=== PATIENT | female | born 1940 | race Caucasian/White ===

== ENCOUNTER → 2016-06-15 | Outpatient (CLI) | payer MEDICARE, OTHER | END | disposition home or self-care (01) | LOC: GMAJ 10:37 | PROVIDERS: ATTEND Family Medicine | DX: I10 Essential (primary) hypertension (principal) ==

== ENCOUNTER → 2016-06-18 | Outpatient (CLI) | payer MEDICARE, OTHER ==
--- NOTE | 2016-06-18 10:37 | MAM ---
History: Well woman exam. Date of exam: 06/18/2016 Services provided: Bilateral full field digital screening mammography. CAD, the images were reviewed with R2 computer aided detection. FINDINGS: Glandular tissue is scattered glandular contour with increased mammographic density. Comparison with 2014 exam. Distribution of the glandular tissue is stable. No dominant mass, architectural distortion or clustered microcalcification. IMPRESSION: Benign exam Recommendation: Routine annual mammography BIRAD CATEGORY: 2 BENIGN Electronically signed by: Daphnie Jaime MD 06/18/2016 10:36 AM CDT
== END ==
LOC: MAMMO 08:55
PROVIDERS: ATTEND Family Medicine
DX: Z12.31 Encounter for screening mammogram for malignant neoplasm of breast (principal)

== ENCOUNTER → 2016-07-23 | Outpatient (CLI) | payer MEDICARE, OTHER ==
--- NOTE | 2016-07-23 09:48 | MRI ---
Procedure: MR KNEE WITHOUT IV CONTRAST Exam Date: 07/23/2016 12:00 AM CDT Ordering Provider: KAYKAY QUINTANA Clinical Indication: KNEE MASS Comparison: None Technique: Multisequence, multiplanar images of the right knee were acquired without intravenous contrast. Findings: Menisci: Medial Meniscus: Unremarkable. No tears demonstrated. Lateral Meniscus: Subtle horizontal oblique tear involves the in a one thirds of the free margin of the body of the meniscus. There is no meniscal extrusion. Ligaments and Intercondylar Notch: The collateral and cruciate ligaments are intact. Articular Cartilage: Medial Compartment: Intact. Lateral Compartment: 0.4 x 0.4 cm focus of the partial-thickness cartilage loss is seen about the posterior weightbearing surface of the lateral femoral condyle. No adjacent subchondral marrow edema. Patellofemoral Joint: Unremarkable. Articular Cartilage and retinacula are intact. Extensor Mechanism: The quadriceps and patellar tendon are intact. Bones: Unremarkable. Soft Tissues/Miscellaneous: Unremarkable. No pathologic effusion or popliteal cyst. No evidence for a muscle tear. IMPRESSION: 1. No discrete mass in the knee. 2. Subtle mucoid degeneration and probable superimposed horizontal oblique tear of the inner one third's of the lateral meniscus. No meniscal extrusion. 3. Intact medial meniscus and cruciate ligaments. 4. 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 No full-thickness cartilage loss. Electronically signed by: Montana Patel MD 07/23/2016 9:48 AM CDT
== END | disposition home or self-care (01) ==
LOC: MRI 08:42
PROVIDERS: ATTEND Family Medicine
DX: R29.898 Other symptoms and signs involving the musculoskeletal system (principal)

== ENCOUNTER → 2017-08-17 | Outpatient (CLI) | payer OTHER | LOC: GMAJ 10:40 | PROVIDERS: ATTEND Family Medicine | DX: I10 Essential (primary) hypertension (principal) ==

== ENCOUNTER → 2017-10-29 | Outpatient (CLI) | payer OTHER | LOC: GMAJ 10:51 | PROVIDERS: ATTEND Family Medicine | DX: M15.0 Primary generalized (osteo)arthritis (principal) ==

== ENCOUNTER → 2017-12-27 | Outpatient (CLI) | payer OTHER, MEDICARE ==
--- NOTE | 2017-12-27 15:31 | US ---
EXAM DESCRIPTION: Carotid Duplex: ULTRASOUND. CLINICAL HISTORY: DIZZINESS COMPARISON: Carotid duplex 11/30/2012. CT scan of the head on the same visit. TECHNIQUE: Transcutaneous scanning utilizing coles-scale and Doppler modes to evaluate the bilateral carotid systems and vertebral arteries. Percentage of diameter of stenosis or no stenosis recorded will be based upon NASCET criteria. FINDINGS: Peak systolic/end diastolic (CM-Sec) CCA Right proximal 63/8 Left proximal 67/10. ICA Right proximal 38/9, distal 57/16. Left proximal 40/7, Distal 76/19. Vertebral Right 44/8 Left 33/9. ECA (PS Only) Right 57 left 59. ICA/CCA peak systolic ratio: Right 0.9 Left 1.1 ICA/CCA end diastolic ratio: Right 2.1 Left 1.8 Vertebral arteries: antegrade flow. Comments: Spectral broadening bilateral proximal ICAs. Minimal atherosclerotic irregularities. IMPRESSION: 1. Doppler evaluation of the bilateral carotid systems and vertebral arteries shows no hemodynamically significant stenoses. 2. No significant amount of plaque seen in the carotid arteries bilaterally. Bilateral vertebral arteries showed antegrade-cephalad flow. Essentially stable findings compared to the prior study in 2012. Vertebral artery was not visualized on that study. Electronically signed by: Patrice Hillman MD 12/27/2017 3:29 PM SUPERINTENDENT NONSELLING
--- NOTE | 2017-12-27 15:40 | CT ---
EXAM DESCRIPTION: Head: Computed Tomography. CLINICAL HISTORY: DIZZINESS COMPARISON: MRI brain without contrast 11/30/2012. TECHNIQUE: Non-helical axial scans through the skull and brain, at 2.5 x 20 mm intervals, non-contrast. Coronal and sagittal 2.0 mm reconstructions. Total Exam DLP: 752.48 mGy-cm. This exam was performed according to our departmental dose-optimization program which includes automated exposure control, adjustment of the mA and/or kV according to patient size and/or use of iterative reconstruction technique; to reduce radiation dose to as low as reasonably achievable (ALARA). FINDINGS: No hemorrhage, no mass-effect, and no midline shift. Minimal low-density in the bilateral periventricular white matter is relatively symmetric and also seen in the bilateral basal ganglia. Focal low-density in the outer inferior left basal ganglia also the subcortical white matter of the right frontal lobe no abnormal radiodense material in the brain parenchyma. Vascular calcifications anterior circulation; physiologic calcifications in the pineal gland and choroid plexus. No effacement or displacement of the ventricles, CSF spaces, or subdural spaces. No extra axial fluid collection or hemorrhage. No gross abnormalities of the bony calvarium. No significant inflammatory changes in the paranasal sinuses. Minimal soft tissue density in the gravity dependent air cells of the mastoid groups bilaterally. Bilateral phani bullosa in the middle turbinates abutting the nasal septum. IMPRESSION: 1. No hemorrhage, no mass effect, no midline shift. Minimal symmetric findings in the periventricular white matter and bilateral basal ganglia most likely related to cerebral microvascular disease and aging. Similar findings seen on brain MRI scan in 2012. Possible cysts or prominent perivascular spaces in the inferior left basal ganglia are stable since the MRI scan. No extra-axial hemorrhage. 2. CT scans are insensitive for detecting small CVAs in the first 24 hours after onset. Evaluation of the brain stem is also limited. If symptoms persist, consider NON-EMERGENT MRI scan of the brain with diffusion imaging. Electronically signed by: Patrice Hillman MD 12/27/2017 3:39 PM MAKEUP ARTISTRY INSTRUCTOR
== END ==
LOC: RAD 13:14
PROVIDERS: ATTEND Family Medicine
DX: R42 Dizziness and giddiness (principal); R26.0 Ataxic gait

== ENCOUNTER → 2018-08-22 | Outpatient (CLI) | payer OTHER ==
--- NOTE | 2018-08-24 16:39 | MAM ---
EXAM DESCRIPTION: 3D Screening BILATERAL : Digital Mammography. CLINICAL HISTORY: 78 years Female SCREENING . No complaints. Remote family history of breast cancer. No personal history of breast cancer. Childbirth. Postmenopausal. No HRT. Lifetime risk of developing breast cancer (Tyrer-Cuzick model)(%): 2.6. COMPARISON: 2-D digital screening bilateral mammography 06/18/2016. TECHNIQUE: Bilateral CC and MLO projection full-field images, digital tomosynthesis mammographic technique. Bilateral digital 2-D full-field MLO images. CAD not available for tomosynthesis or 2-D images. FINDINGS: The breast parenchymal density pattern is: Heterogeneously dense breast tissue, which may obscure small masses. No skin thickening or nipple retraction. Scattered solitary microcalcifications. Bilateral axillary lymph nodes. No new focal, stellate mass or density, focal asymmetry , and no suspicious microcalcifications bilaterally. Stable mammograms compared to prior study. Taking into account, differences in mammographic technique. IMPRESSION: Benign exam. BIRAD CATEGORY: 2 BENIGN FINDINGS. RECOMMENDATIONS: FOLLOW UP: Routine digital bilateral mammographic screening, one year interval from August 2018. Written communication explaining the IMPRESSION and follow-up, will be mailed to the patient and referring health care provider. According to the [employer], yearly mammograms are recommended starting at age 40 and continuing as long as a woman is in good health. Any breast change noted on a breast self-exam should be reported promptly to the patient's healthcare provider. Breast MRI is recommended for women with an approximately 20-25% or greater lifetime risk of breast cancer, including women with a strong family history of breast or ovarian cancer and women who have been treated for Hodgkin's disease. A negative mammographic report should not delay tissue diagnosis in patients with significant clinical history or physical findings. Extremely dense breast tissue limits the sensitivity of digital mammography. Electronically signed by: Patrice Hillman MD 08/24/2018 4:37 PM CDT
== END ==
LOC: MAMMO 11:22
PROVIDERS: ATTEND Family Medicine
DX: Z12.31 Encounter for screening mammogram for malignant neoplasm of breast (principal)